=== PATIENT | female | born 1945 | race Caucasian/White ===

== ENCOUNTER → 2016-08-02 | Outpatient (CLI) | payer MEDICARE, BC ==
[~2016-08-02] MED LIST: ALPRAZOLAM PO; AMBIEN PO; ASPIRIN EC81 M1 PO; BACITRACIN30 GM TOP; CALCIUM; CALCIUM + VITAM1 TAB PO; FISH OIL 1,2001 EACH PO; FLAGYL PO; KEFLEX PO; LIPITOR PO; MULTI-DAY VITAM1 TAB PO; OYSTER CALCIUM500 MG PO; SIMVASTATIN40 MG PO; SPIRIVA18 MCG INH; SYMBICORT 80-10.2 GM; TOPROL XL PO; VICODIN 5/500 T1 TAB PO; VIT E PO; VITAMIN C DAILY; [UNRECOGNIZED DRUG - OTHER]
--- NOTE | ~2016-08-02 | CR150 ---
[facility] A Service of [facility] RADIOLOGY TEXT RESULTS PATIENT: SORIN MESA LOCATION: [facility] : [birth year] UNIT #: [id number] AGE: [address]: Christian Rivera MD SEX: F ORDER DR: [id number] [address] [address] [id number] O MR#: [id number] Acc #: [id number] NAME: SORIN MESA : 1945 SEX: F STUDY DATE/TIME: 08/02/2016 11:08 UNIT: SRAD ROOM: STUDY DESCRIPTION: CR Hip Min 2 Views Lt Attending Physician: Cris Rivera M.D. Referring Physician: Cris Rivera M.D. Ordering Physician: Cris Rivera M.D. Primary Care Physician: Tu Wharton M.D. MEDICAL IMAGING REPORT This report is preliminary unless electronic signature is present. EXAM Left hip, 08/02/2016. HISTORY 71-year-old female with left hip pain after pulling weeds from a stool [address] abdomen and pelvis, 08/19/2015. FINDINGS 2 views of the left hip demonstrate no acute fracture or dislocation. Joint spaces are adequately maintained. Bony pelvis intact. Sacrum and SI joints intact. Mild degenerative changes in the lumbar spine. Soft tissues are unremarkable. IMPRESSION 1. No acute fracture or dislocation. 2. Mild degenerative changes in the visualized lumbar spine. Dictated by... Zaire Sierra M.D. THIS IS AN ELECTRONICALLY VERIFIED REPORT Zaire Sierra M.D. at 08/03/2016 6:38 PM SARAH/lisandra TD: 08/02/2016 16:38 JOB #: [id number] [facility] A Service of [facility] RADIOLOGY TEXT RESULTS PATIENT: SORIN MESA LOCATION: [facility] : 45 UNIT #: [id number] AGE: [address]: Christian Rivera MD SEX: F ORDER DR: MEDICAL IMAGING REPORT Page 1 of 1
== END | disposition home or self-care (01) ==
LOC: SRAD 10:59
DX: M25.552 Pain in left hip (principal); M47.816 Spondylosis without myelopathy or radiculopathy, lumbar region
CPT/HCPCS: 73502

== ENCOUNTER → 2016-11-11 | Outpatient (CLI) | payer MEDICARE, BC ==
--- NOTE | ~2016-11-11 | MR113 ---
[facility] A Service of [facility] RADIOLOGY TEXT RESULTS PATIENT: SORIN MESA LOCATION: [facility] : 45 UNIT #: [id number] AGE: [address]: Tu Wharton MD SEX: F ORDER DR: [id number] [address] [address] [id number] O MR#: [id number] Acc #: [id number] NAME: SORIN MESA. : 1945 SEX: F STUDY DATE/TIME: 11/11/2016 15:48 UNIT: [facility] ROOM: STUDY DESCRIPTION: MR Lumbar Wo Contrast Attending Physician: Tu Wharton M.D. Referring Physician: Tu Wharton M.D. Ordering Physician: Tu Wharton M.D. Primary Care Physician: Tu Wharton M.D. MRI CENTER REPORT This report is preliminary unless electronic signature is present. EXAM MRI of the lumbar spine without contrast dated 11/11/2016. COMPARISON Plain films lumbar spine dated 10/22/2016 and MRI lumbar spine without contrast dated 08/21/2010. HISTORY Increased low-back pain favoring the left side. It extends into the left lower extremity. Pain has been going on for 2-3 months. FINDINGS Multisequence, multiplanar imaging of the lumbar spine was obtained without contrast. Vertebral body heights are preserved. Disc osteophyte complexes are at multiple levels with loss of disc height at L3-4 and L4-5. Conus terminates at inferior L1 close to L1-2 disc. Pre and paravertebral soft tissues do not demonstrate any significant abnormality. L1-2: Mild disc bulge which is slightly prominent in the left foraminal to extraforaminal region suspicious for superimposed broad-based protrusion. It is stable to slightly worse with mild inferior left neural foraminal narrowing. No canal stenosis. L2-3: Mild degenerative disc signal loss with suspicious small bilateral foraminal to extraforaminal broad-based protrusions with mild inferior bilateral neural foraminal narrowing. No canal stenosis. L3-4: Disc osteophyte complex which is asymmetrically prominent in bilateral foraminal to extraforaminal regions. Btmc-tr-fjnejtxq bilateral facet changes are noted with mild to moderate canal stenosis and STS. [facility] A Service of [facility] & [facility] RADIOLOGY TEXT RESULTS PATIENT: SORIN MESA LOCATION: [facility] : 45 UNIT #: [id number] AGE: [address]: Tu Wharton MD SEX: F ORDER DR: [id number] bilateral neural foraminal narrowing. L4-5: Disc osteophyte complex with mild right and bgzh-gp-aaimchlq left facet hypertrophic change. Gual-id-gscyerlm canal stenosis is seen with iopj-mf-wilnvayl bilateral neural foraminal narrowing and mild bilateral lateral recess stenosis. L5-S1: Disc osteophyte complex is noted, asymmetrically prominent in right foraminal to extraforaminal regions, suspicious for superior imposed protrusion which impinges on the right L5 nerve root. There is moderate to severe right and moderate left neural foraminal narrowing without any significant canal stenosis, stable. IMPRESSION 1. Given the differences in slice selection, degenerative changes at multiple levels appear to be relatively stable. 2. Among the levels, findings are worse at L4-5 followed by L3-4 and L5-S1. Dictated by.Dominique. Elkin Dinero M.D. THIS IS AN ELECTRONICALLY VERIFIED REPORT Elkin Dinero M.D. at 11/15/2016 4:12 PM CPR/lisandra TD: 11/12/2016 12:31 JOB #: [id number] MRI CENTER REPORT Page 1 of 1
== END | disposition home or self-care (01) ==
LOC: SMRI 15:22
DX: M54.5 Low back pain (principal); R93.7 Abnormal findings on diagnostic imaging of other parts of musculoskeletal system; M47.896 Other spondylosis, lumbar region; M47.897 Other spondylosis, lumbosacral region
CPT/HCPCS: 72148